=== PATIENT | male | born 1975 | race Caucasian/White ===

== ENCOUNTER 2025-01-10 19:02 | Emergency (ER) | payer SELFPAY ==
[2025-01-10 19:26] VITALS: BP 142/90; PULSE 65; TEMP 36.8; O2SAT 98; BMI 29.3
--- NOTE | 2025-01-10 21:14 | ED.ABDPAIN1 ---
Documented by User: Karol Kinsey 01/10/25 21:18 HPI - Abdominal Pain General Chief Complaint: Abdominal Pain Stated Complaint: CONSTIPATION Time Seen by Provider: 01/10/25 19:58 Source: patient Mode of arrival: walk-in History of Present Illness HPI narrative: 49-year-old male presents here with chief complaint of constipation. Patient states he is felt constipated the last couple days. He feels as if he ate may have a stool burden. Patient denies nausea, vomiting, fever or chills. Nontender to palpation. Patient denies a known history of or other bowel issues. Denies a history of diverticulitis or diverticulosis. He has had no history of diarrhea. Related Data Previous Rx's ?Medication ?Instructions ?Recorded docusate sodium 100 mg capsule 100 mg PO DAILY #20 caps 01/10/25 (Colace) Allergies Allergy/AdvReac Type Severity Reaction Status Date / Time No Known Drug Allergies Allergy Verified 01/10/25 19:29 Review of Systems ROS Status of ROS 10 or more systems reviewed and unremarkable except as noted in history and below PFSH PFS Social History Little interest or pleasure in doing things: not at all Feeling down, depressed, or hopeless: not at all Exam Narrative Exam Narrative: All Systems are negative except as noted/marked.All systems reviewed and otherwise negative Nurses note and vital signs reviewed and patient is not hypoxic. General: The patient appears well and in no apparent distress. Patient is resting comfortably on cart. Skin: Warm, dry, no pallor noted. There is no rash noted. Head: Normocephalic, atraumatic Eye: Normal conjunctiva, no drainage, EOMI. PERRL Ears, Nose, Mouth, and Throat: oral mucosa is moist. Nares patent. Mouth without vesicles. Ear canals patent. Tm's without Erythema Cardiovascular: Regular Rate and Rhythm Respiratory: Patient is in no distress, no accessory muscle use, lungs are clear to auscultation, no wheezing, rales or rhonchi Back: non-tender, no CVA tenderness bilaterally to percussion. GI: Normal bowel sounds, no tenderness to palpation, no masses appreciated. No rebound, guarding, or rigidity noted. Musculoskeletal: The patient has no evidence of calf tenderness, no pitting edema, symmetrical pulses noted bilaterally Neurological: A&O x4, normal speech Psychiatric: Cooperative Constitutional Vital Signs, click to edit/add: Last Vital Signs Temp 98.3 F 01/10/25 19:26 Pulse 65 01/10/25 19:26 Resp 18 01/10/25 19:26 BP 142/90 H 01/10/25 19:26 Pulse Ox 98 01/10/25 19:26 O2 Del Method Room Air 01/10/25 19:26 Course Vital Signs Vital signs: Vital Signs Temperature 98.3 F 01/10/25 19:26 Pulse Rate 65 01/10/25 19:26 Respiratory Rate 18 01/10/25 19:26 Blood Pressure 142/90 H 01/10/25 19:26 Pulse Oximetry 98 01/10/25 19:26 Oxygen Delivery Method Room Air 01/10/25 19:26 Temperature 98.3 F 01/10/25 19:26 Pulse Rate 65 01/10/25 19:26 Respiratory Rate 18 01/10/25 19:26 Blood Pressure 142/90 H 01/10/25 19:26 Pulse Oximetry 98 01/10/25 19:26 Oxygen Delivery Method Room Air 01/10/25 19:26 MDM - Abdominal Pain MDM Narrative Medical decision making narrative: 49-year-old male presents here with chief complaint of constipation. Patient states he is felt constipated the last couple days. He feels as if he ate may have a stool burden. Patient denies nausea, vomiting, fever or chills. Nontender to palpation. Patient denies a known history of or other bowel issues. Denies a history of diverticulitis or diverticulosis. He has had no history of diarrhea. With possible constipation. Rectal exam was performed. Patient has good rectal tone. No stool burden noted initially. Patient send no nausea or vomiting. He states he feels he is constipated. We will discharge him home with prescription of stool softener, Colace. Patient was also told he could buy [id number] magnesium citrate Plan of care. He is going to follow-up with clinic in [place] Differential Diagnosis Differential diagnosis: Likely constipation Medical Records Attestation: I reviewed the patient's medical records. Imaging Data Abdominal x-ray: Attestation: I have reviewed the pertinent imaging results. My impression: nad, no free air Discharge Plan Discharge Chief Complaint: Abdominal Pain Clinical Impression: Constipation Patient Disposition: Home, Self-Care Time of Disposition Decision: 21:12 Condition: Good Mode of Transportation: Private Vehicle Prescriptions / Home Meds: New docusate sodium [Colace] 100 mg capsule 100 mg PO DAILY Qty: 20 0RF Print Language: Macedonian Instructions: Constipation (DC) Additional Instructions: Follow up with your family DR Referrals: Physician,Non-Staff, MD [Primary Care Provider] - 1 week Discharge Date/Time: 01/10/25 21:39 Documented by User: Osiris Anders DO 01/12/25 02:43 HPI - Abdominal Pain General Chief Complaint: Abdominal Pain Stated Complaint: CONSTIPATION Time Seen by Provider: 01/10/25 19:58 Related Data Patient : No Previous Rx's ?Medication ?Instructions ?Recorded docusate sodium 100 mg capsule 100 mg PO DAILY #20 caps 01/10/25 (Colace) Allergies Allergy/AdvReac Type Severity Reaction Status Date / Time No Known Drug Allergies Allergy Verified 01/10/25 19:29 PFSH PFSH Social History Little interest or pleasure in doing things: not at all Feeling down, depressed, or hopeless: not at all Exam Constitutional Vital Signs, click to edit/add: Last Vital Signs Temp 98.3 F 01/10/25 19:26 Pulse 65 01/10/25 19:26 Resp 18 01/10/25 19:26 BP 142/90 H 01/10/25 19:26 Pulse Ox 98 01/10/25 19:26 O2 Del Method Room Air 01/10/25 19:26 Course Vital Signs Vital signs: Vital Signs Temperature 98.3 F 01/10/25 19:26 Pulse Rate 65 01/10/25 19:26 Respiratory Rate 18 01/10/25 19:26 Blood Pressure 142/90 H 01/10/25 19:26 Pulse Oximetry 98 01/10/25 19:26 Oxygen Delivery Method Room Air 01/10/25 19:26 Temperature 98.3 F 01/10/25 19:26 Pulse Rate 65 01/10/25 19:26 Respiratory Rate 18 01/10/25 19:26 Blood Pressure 142/90 H 01/10/25 19:26 Pulse Oximetry 98 01/10/25 19:26 Oxygen Delivery Method Room Air 01/10/25 19:26 MDM - Abdominal Pain Differential Diagnosis Differential diagnosis: Likely abdominal pain, acute appendicitis, calculus of kidney, diverticulitis, gastroenteritis, pancreatitis and small bowel obstruction Discharge Plan Discharge Chief Complaint: Abdominal Pain Clinical Impression: Constipation Patient Disposition: Home, Self-Care Time of Disposition Decision: 21:12 Condition: Good Mode of Transportation: Private Vehicle Prescriptions / Home Meds: New docusate sodium [Colace] 100 mg capsule 100 mg PO DAILY Qty: 20 0RF Print Language: Macedonian Instructions: Constipation (DC) Additional Instructions: Follow up with your family DR Referrals: Physician,Non-Staff, MD [Primary Care Provider] - 1 week Discharge Date/Time: 01/10/25 21:39
== END 2025-01-10 21:39 | disposition home or self-care (01) ==
PROVIDERS: Emergency Provider Emergency Medicine
DX: K59.00 Constipation, unspecified (principal)
CPT/HCPCS: 74018; 99283